=== PATIENT | male | born 1965 | race Caucasian/White ===

== ENCOUNTER → 2017-04-04 | Outpatient (CLI) | payer MEDICARE ==
[~2017-04-04] MED LIST: ALPR-429 PO; CITA-139 PO; OXYC-854 PO; PER PO; PROM-110 PO; SALI10002; ZOLP-350 PO
== END ==
LOC: LAB 16:54
PROVIDERS: ATTEND Emergency Medicine
DX: Z12.5 Encounter for screening for malignant neoplasm of prostate (principal); R25.1 Tremor, unspecified
CPT/HCPCS: 36415; 84443; G0103; 84153

== ENCOUNTER → 2017-04-13 | Outpatient (CLI) | payer MEDICARE ==
[~2017-04-13] MED LIST changes: +FLU60SYR30 IM ONLY; +IPRA3AMP21 IH; +IPRA4AER IH; +PNEI IJ; +PRIM50TA PO; +TIOT4MIS3 INH
== END ==
LOC: RESP 02:49
PROVIDERS: ATTEND Emergency Medicine
DX: J98.4 Other disorders of lung (principal)
CPT/HCPCS: 94060; 94726; 94729

== ENCOUNTER → 2017-04-19 | Outpatient (CLI) | payer MEDICARE ==
[~2017-04-19] MED LIST changes: -IPRA3AMP21 IH
--- NOTE | 2017-04-19 13:33 | RADIOLOGY IMAGING REPORT ---
FACILITY: [facility] PATIENT NAME: Cedric Estrada : 1965 MR: [id number] V: [id number] EXAM DATE: ORDERING PHYSICIAN: MOSES BARAJAS TECHNOLOGIST: Location: [facility] [place] Patient: Cedric Estrada : 1965 Visit/Account:[id number] Date of Sevice: 04/19/2017 Exam type: CHEST PA AND LAT History: Chest pain waking him up at night, 25+ years smoker, squamous cell neck and throat cancer hi story Comparison: None. Findings: The lungs are free of acute effusions, infiltrates or edema. The cardiac silhouette is normal in siz e. Trachea is in midline. There are mild spondylotic changes of the thoracic spine. IMPRESSION: 1. No acute cardiopulmonary process is seen. Report Dictated By: Nena Theodore MD at 04/19/2017 1:27 PM Report E-Signed By: Nena Theodore MD at 04/19/2017 1:28 PM WSN:[email or web address]
== END ==
LOC: LAB 11:21
PROVIDERS: ATTEND Emergency Medicine
DX: R06.09 Other forms of dyspnea (principal); Z72.0 Tobacco use; E66.3 Overweight
CPT/HCPCS: 36415; 71046; 82465; 83718; 84478

== ENCOUNTER 2017-04-28 14:28 | Emergency (ER) | payer MEDICARE ==
[~2017-04-28] VITALS: Ht 182.9 cm; Wt 81.6 kg
[~2017-04-28 14:28] MED LIST changes: +IPRA3AMP21 IH
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
[2017-04-28] MEDS ORDERED: CITA-156 PO (14:42)
[2017-04-28] MEDS ORDERED: LIDOCAINE 2% 200MG/10ML UROJET ONE (15:03)
[2017-04-28 16:00] VITALS: BP 133/88
== END 2017-04-28 16:04 | disposition home or self-care (01) ==
LOC: ER 14:40
DX: R33.9 Retention of urine, unspecified (principal)
CPT/HCPCS: 81001; 87088; 99283

== ENCOUNTER → 2017-04-29 | Outpatient (CLI) | payer MEDICARE ==
[~2017-04-29] MED LIST changes: +CITA-156 PO
== END ==
LOC: LAB 11:07
PROVIDERS: ATTEND Emergency Medicine
DX: F15.10 Other stimulant abuse, uncomplicated (principal); Z79.899 Other long term (current) drug therapy
CPT/HCPCS: 80305

== ENCOUNTER → 2017-05-20 | Outpatient (CLI) | payer MEDICARE | LOC: LAB 14:22 | PROVIDERS: ATTEND Urology | DX: R31.0 Gross hematuria (principal) | CPT/HCPCS: 36415; 82565 ==

== ENCOUNTER 2017-07-21 05:01 | Emergency (ER) | payer MEDICARE ==
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
[2017-07-21 05:35] LABS: PLATELET COUNT, AUTOMATED 202 K/uL (150-450)
--- NOTE | 2017-07-21 06:19 | RADIOLOGY IMAGING REPORT ---
FACILITY: [facility] [place] PATIENT NAME: Cedric Estrada : 1965 MR: [id number] V: [id number] EXAM DATE: ORDERING PHYSICIAN: JESSICA CRUZ TECHNOLOGIST: [facility] Patient: Cedric Estrada : 1965 Visit/Account:[id number] Date of Sevice: 07/21/2017 CT Head without contrast Indication: Seizure. Comparison: None available. Technique: Axial CT images were obtained through the brain from the skull base to the vertex without administration of IV contrast. One of the following dose optimization techniques was utilized in th e performance of this exam: Automated exposure control; adjustment of the mA and/or kV according to t he patient's size; or use of an iterative reconstruction technique. Specific details can be referen chi in the facility's radiology CT exam operational policy. Findings: No evidence of mass, mass effect, or midline shift. No acute intracranial hemorrhage or acute territorial infarction. No fracture. Apparent previous right globe enucleation. A prosthetic is posteriorly and laterally displaced. Small right frontal ethmoidal retention cyst The visualized paranasal sinuses and mastoid air spaces are otherwise clear. IMPRESSION: 1. No acute intracranial abnormality. 2. 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 Dr. Woodall discussed this case with JESSICA CRUZ on 07/21/2017 6:14 AM. Report Dictated By: Sandro Woodall MD at 07/21/2017 6:08 AM Report E-Signed By: Sandro Woodall MD at 07/21/2017 6:15 AM WSN:[id number]
[2017-07-21] MEDS ORDERED: PRIM50TA PO (06:38)
[2017-07-21] MEDS ORDERED: EMS NS 0.9%(*) 1000 ML BAG 1,000 ML IV ONE (07:15)
[2017-07-21 10:14] VITALS: BP 144/93
== END 2017-07-21 10:27 | disposition home or self-care (01) ==
LOC: ER 05:04
DX: R56.9 Unspecified convulsions (principal); F15.10 Other stimulant abuse, uncomplicated; F19.10 Other psychoactive substance abuse, uncomplicated; Z85.89 Personal history of malignant neoplasm of other organs and systems
CPT/HCPCS: 36415; 36416; 70450; 80305; 82948; 83735; 85025; 96361; 99284; G0480; 80320; 82040; 82247; 82310; 82374; 82435; 82565; 82947; 84075; 84132; 84155; 84295; 84450; 84460; 84520; 96360

== ENCOUNTER → 2017-07-21 | Outpatient (CLI) | payer MEDICARE ==
[~2017-07-21] MED LIST changes: -CITA-139 PO; +CITA-145 PO
== END ==
LOC: AMB 04:36
PROVIDERS: ATTEND Nurse Practitioner
DX: R56.9 Unspecified convulsions (principal); S30.861A Insect bite (nonvenomous) of abdominal wall, initial encounter
CPT/HCPCS: A0425; A0427

== ENCOUNTER 2017-08-29 22:56 | Emergency (ER) | payer MEDICARE ==
--- NOTE | 2017-08-29 23:08 | ER Report ---
History and Physical Time Seen By MD: 23:01 HPI/ROS CHIEF COMPLAINT: Bladder pain, hematuria HISTORY OF PRESENT ILLNESS: 52-year-old male reports 1 week of hematuria. Patient is followed by Dr. Billingsley urology in [place]. 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 Patient was seen here several months ago with a seizure abusing methamphetamines. He was discharged from his internal medicine practice where he was being managed for chronic pain. When he admitted methamphetamine use and abuse. Patient reports gross hematuria. He notes staining of his shorts with hematuria. Patient's reporting bladder discomfort. He denies fever or chills. REVIEW OF SYSTEMS: Respiratory: No cough, no dyspnea. Cardiovascular: No chest pain, no palpitations. Gastrointestinal: As above Musculoskeletal: No back pain. Home Meds Active Scripts Primidone (PRIMIDONE) 50 Mg Tab, 50 MG PO DAILY for seizure prevention, #30 TAB Prov:JESSICA CRUZ DO 07/21/17 Citalopram Hydrobromide (CELEXA) 20 Mg Tablet, 20 MG PO QDAY, #30 TAB 0 Refills Prov:MOSES BARAJAS MD 05/05/17 Primidone (PRIMIDONE) 50 Mg Tab, 1 TAB PO DAILY, #30 TAB Prov:MOSES BARAJAS MD 05/05/17 Ipratropium/Albuterol Sulfate (COMBIVENT RESPIMAT INHAL SPRAY) 4 Gm Aer.w.adap, 1 EACH IH QID, #1 Prov:MOSES BARAJAS MD 04/20/17 Promethazine Hcl (PROMETHAZINE HCL) 25 Mg Tablet, 25 MG PO Q8H for 30 Days, #60 TAB Prov:MARTY DE LEON [employer] [facility] [employer]-BC, ONC 03/15/17 Reported Medications Saliva Substitution Combo No.9 (Biotene) Unknown Strength Mouthwash 04/04/17 Discontinued Scripts Alprazolam (XANAX) 0.5 Mg Tablet, 1 TAB PO TID for 30 Days, #42 TAB Prov:MOSES BARAJAS MD 05/05/17 Ipratropium/Albuterol Sulfate (IPRAT-ALBUT 0.5-3(2.5) MG/3 ML) 3 Ml Ampul.neb, 3 ML IH QID, #120 VIAL 0 Refills Prov:MOSES BARAJAS MD 04/21/17 Reviewed Nurses Notes: Yes Old Medical Records Reviewed: Yes Smoking Status: Current: Every Day Smoker Hx Substance Use Disorder: No Hx Alcohol Use: No Constitutional Vital Sign - Last 24 Hours 08/29/17 08/29/17 08/29/17 08/29/17 23:05 23:05 23:15 23:30 Temp 98.3 Pulse 110 104 101 Resp 28 B/P (MAP) 144/103 (117) 144/103 117/83 (94) Pulse Ox 98 97 97 08/29/17 08/30/17 08/30/17 08/30/17 23:45 00:00 00:15 00:30 Pulse 97 98 B/P (MAP) 128/92 (104) 122/92 (102) Pulse Ox 95 95 08/30/17 00:45 Pulse 97 Pulse Ox 86 Physical Exam General Appearance: The patient is alert, has no immediate need for airway protection and no current signs of toxicity. - Stable, afebrile, pulse ox normal Eyes: Pupils equal and round no injection. Respiratory: Chest is non tender, lungs are clear to auscultation. Cardiac: regular rate and rhythm Gastrointestinal: Abdomen is soft and non tender, no masses, bowel sounds normal. Blood stained underwear Musculoskeletal: Neck: Neck is supple and non tender. Extremities have full range of motion and are non tender. Skin: No rashes or lesions. DIFFERENTIAL DIAGNOSIS: After history and physical exam differential diagnosis was considered for hematuria, UTI, renal colic, bladder cancer, interstitial cystitis, malingering Medical Decision Making Data Points Result Diagram: 08/29/17 22508/29/172250 Laboratory Hematology Test 08/29/17 22:51 08/30/17 00:31 Red Blood Count 5.57 M/uL (4.00-5.60) Mean Corpuscular Volume 90.4 fL (80.0-96.0) Mean Corpuscular Hemoglobin 31.1 pg (26.0-33.0) Mean Corpuscular Hemoglobin Concent 34.3 g/dL (32.0-36.0) Red Cell Distribution Width 14.6 % (11.5-14.5) Mean Platelet Volume 8.2 fL (7.2-11.1) Neutrophils (%) (Auto) 77.3 % (39.4-72.5) Lymphocytes (%) (Auto) 15.2 % (17.6-49.6) Monocytes (%) (Auto) 5.5 % (4.1-12.4) Eosinophils (%) (Auto) 1.1 % (0.4-6.7) Basophils (%) (Auto) 0.9 % (0.3-1.4) Nucleated RBC Relative Count (auto) 0.0 /100WBC Neutrophils # (Auto) 10.6 K/uL (2.0-7.4) Lymphocytes # (Auto) 2.1 K/uL (1.3-3.6) Monocytes # (Auto) 0.8 K/uL (0.3-1.0) Eosinophils # (Auto) 0.1 K/uL (0.0-0.5) Basophils # (Auto) 0.1 K/uL (0.0-0.1) Nucleated RBC Absolute Count (auto) 0.00 K/uL Prothrombin Time 12.9 seconds (12.0-14.4) Prothromb Time International Ratio 0.97 Activated Partial Thromboplast Time 27 seconds (23-35) Sodium Level 140 mmol/L (137-145) Potassium Level 3.8 mmol/L (3.5-5.0) Chloride Level 101 mmol/L (98-107) Carbon Dioxide Level 24 mmol/L (22-30) Blood Urea Nitrogen 24 mg/dl (9-21) Creatinine 1.20 mg/dl (0.66-1.25) Glomerular Filtration Rate Calc > 60.0 Random Glucose 95 mg/dl (75-110) Calcium Level 9.5 mg/dl (8.4-10.2) Total Bilirubin 0.6 mg/dl (0.2-1.3) Aspartate Amino Transf (AST/SGOT) 49 U/L (0-35) Alanine Aminotransferase (ALT/SGPT) 73 U/L (0-56) Alkaline Phosphatase 87 U/L (0-126) Total Protein 8.4 g/dl (6.3-8.2) Albumin 4.7 g/dl (3.5-5.0) Amylase Level 83 U/L (0-110) Lipase 44 U/L (23-300) Urine Color Yellow Urine Clarity Clear Urine pH 6.0 pH (4.8-9.5) Urine Specific [place] 1.023 Urine Protein Negative mg/dL (NEGATIVE) Urine Glucose (UA) Negative mg/dL (NEGATIVE) Urine Ketones Trace mg/dL (NEGATIVE) Urine Blood Negative (NEGATIVE) Urine Nitrite Negative (NEGATIVE) Urine Bilirubin Negative (NEGATIVE) Urine Urobilinogen Negative mg/dL (0.2-1.9) Urine Leukocyte Esterase Negative (NEGATIVE) Urine RBC 3 /HPF (0-2/HPF) Urine WBC 1 /HPF (0-5/HPF) Urine Squamous Epithelial Cells None /LPF (</=FEW) Urine Bacteria Negative /HPF (NONE-FEW) Urine Mucus None /HPF (NONE-FEW) Urine Opiates Screen Positive Urine Barbiturates Screen Negative Ur Tricyclic Antidepressants Screen Negative Urine Phencyclidine Screen Negative Urine Amphetamines Screen Positive Urine Benzodiazepines Screen Negative Urine Cocaine Screen Negative Urine Cannabinoids Screen Negative Chemistry Test 08/29/17 22:51 08/30/17 00:31 White Blood Count 13.7 k/uL (4.5-11.0) Red Blood Count 5.57 M/uL (4.00-5.60) Hemoglobin 17.3 g/dL (14.0-18.0) Hematocrit 50.4 % (42.0-52.0) Mean Corpuscular Volume 90.4 fL (80.0-96.0) Mean Corpuscular Hemoglobin 31.1 pg (26.0-33.0) Mean Corpuscular Hemoglobin Concent 34.3 g/dL (32.0-36.0) Red Cell Distribution Width 14.6 % (11.5-14.5) Platelet Count 286 K/uL (150-450) Mean Platelet Volume 8.2 fL (7.2-11.1) Neutrophils (%) (Auto) 77.3 % (39.4-72.5) Lymphocytes (%) (Auto) 15.2 % (17.6-49.6) Monocytes (%) (Auto) 5.5 % (4.1-12.4) Eosinophils (%) (Auto) 1.1 % (0.4-6.7) Basophils (%) (Auto) 0.9 % (0.3-1.4) Nucleated RBC Relative Count (auto) 0.0 /100WBC Neutrophils # (Auto) 10.6 K/uL (2.0-7.4) Lymphocytes # (Auto) 2.1 K/uL (1.3-3.6) Monocytes # (Auto) 0.8 K/uL (0.3-1.0) Eosinophils # (Auto) 0.1 K/uL (0.0-0.5) Basophils # (Auto) 0.1 K/uL (0.0-0.1) Nucleated RBC Absolute Count (auto) 0.00 K/uL Prothrombin Time 12.9 seconds (12.0-14.4) Prothromb Time International Ratio 0.97 Activated Partial Thromboplast Time 27 seconds (23-35) Glomerular Filtration Rate Calc > 60.0 Calcium Level 9.5 mg/dl (8.4-10.2) Total Bilirubin 0.6 mg/dl (0.2-1.3) Aspartate Amino Transf (AST/SGOT) 49 U/L (0-35) Alanine Aminotransferase (ALT/SGPT) 73 U/L (0-56) Alkaline Phosphatase 87 U/L (0-126) Total Protein 8.4 g/dl (6.3-8.2) Albumin 4.7 g/dl (3.5-5.0) Amylase Level 83 U/L (0-110) Lipase 44 U/L (23-300) Urine Color Yellow Urine Clarity Clear Urine pH 6.0 pH (4.8-9.5) Urine Specific [place] 1.023 Urine Protein Negative mg/dL (NEGATIVE) Urine Glucose (UA) Negative mg/dL (NEGATIVE) Urine Ketones Trace mg/dL (NEGATIVE) Urine Blood Negative (NEGATIVE) Urine Nitrite Negative (NEGATIVE) Urine Bilirubin Negative (NEGATIVE) Urine Urobilinogen Negative mg/dL (0.2-1.9) Urine Leukocyte Esterase Negative (NEGATIVE) Urine RBC 3 /HPF (0-2/HPF) Urine WBC 1 /HPF (0-5/HPF) Urine Squamous Epithelial Cells None /LPF (</=FEW) Urine Bacteria Negative /HPF (NONE-FEW) Urine Mucus None /HPF (NONE-FEW) Urine Opiates Screen Positive Urine Barbiturates Screen Negative Ur Tricyclic Antidepressants Screen Negative Urine Phencyclidine Screen Negative Urine Amphetamines Screen Positive Urine Benzodiazepines Screen Negative Urine Cocaine Screen Negative Urine Cannabinoids Screen Negative Coagulation Test 08/29/17 22:51 Prothrombin Time 12.9 seconds Prothromb Time International Ratio 0.97 Activated Partial Thromboplast Time 27 seconds Toxicology Test 08/30/17 00:31 Urine Opiates Screen Positive Urine Barbiturates Screen Negative Ur Tricyclic Antidepressants Screen Negative Urine Phencyclidine Screen Negative Urine Amphetamines Screen Positive Urine Benzodiazepines Screen Negative Urine Cocaine Screen Negative Urine Cannabinoids Screen Negative Urinalysis Test 08/30/17 00:31 Urine Color Yellow Urine Clarity Clear Urine pH 6.0 pH (4.8-9.5) Urine Specific [place] 1.023 Urine Protein Negative mg/dL (NEGATIVE) Urine Glucose (UA) Negative mg/dL (NEGATIVE) Urine Ketones Trace mg/dL (NEGATIVE) Urine Blood Negative (NEGATIVE) Urine Nitrite Negative (NEGATIVE) Urine Bilirubin Negative (NEGATIVE) Urine Urobilinogen Negative mg/dL (0.2-1.9) Urine Leukocyte Esterase Negative (NEGATIVE) Urine RBC 3 /HPF (0-2/HPF) Urine WBC 1 /HPF (0-5/HPF) Urine Squamous Epithelial Cells None /LPF (</=FEW) Urine Bacteria Negative /HPF (NONE-FEW) Urine Mucus None /HPF (NONE-FEW) ED Course/Re-evaluation ED Course Patient was admitted to an examination room. H&P was done. The differential diagnoses was considered. On clinical examination. Patient's complaining of hematuria and bladder pain. Patient has a history of polysubstance abuse. Diagnostic laboratory studies are ordered. A urinalysis is ordered. Patient's unable to provide urine claims he is unable to void. A [place] catheter was inserted. His urine is clear yellow. There is no evidence of infection. There is no hematuria. Patient requesting that the [place] catheter be left in. He is advised to follow-up with Dr. Gonzalez his urologist in [place]. A drug tox screen is positive for opiates and methamphetamine. I suspect the patient' s malingering as he does not want to assisted. [employer] officers are here and are planning arresting him. Decision to Disposition Date: Aug 30, 2017 Decision to Disposition Time: 00:50 Depart Departure Latest Vital Signs Vital Signs Date Time Temp Pulse Resp B/P (MAP) Pulse Ox O2 Delivery O2 Flow Rate FiO2 08/30/17 00:45 97 86 08/30/17 00:30 122/92 (102) 08/29/17 23:05 98.3 28 Impression: Primary Impression: Hematuria Additional Impressions: Bladder pain Malingering Condition: Improved Disposition: [facility]CORRECTIONAL F Referrals: MOSES BARAJAS MD (PCP) Patient Instructions: Hematuria (ED) Additional Instructions: Follow-up with your urologist Medical cleared for assisted admission Problem Qualifiers Primary Impression: Hematuria Hematuria type: unspecified type Qualified Codes: R31.9 - Hematuria, unspecified JESSICA CRUZ DO Aug 29, 2017 23:08
[2017-08-29 23:15] LABS: PLATELET COUNT, AUTOMATED 286 K/uL (150-450)
[2017-08-29 23:25] LABS: INR 0.97
[2017-08-30] MEDS ORDERED: LIDOCAINE 2% 200MG/10ML UROJET TP ONE (00:15)
[2017-08-30 00:30] VITALS: BP 122/92
== END 2017-08-30 01:18 ==
LOC: ER 23:02
DX: R31.9 Hematuria, unspecified (principal); R39.89 Other symptoms and signs involving the genitourinary system; Z76.5 Malingerer [conscious simulation]; F15.90 Other stimulant use, unspecified, uncomplicated
CPT/HCPCS: 80305; 81001; 82040; 82150; 82247; 82310; 82374; 82435; 82565; 82947; 83690; 84075; 84132; 84155; 84295; 84450; 84460; 84520; 85025; 85610; 85730; 99283

== ENCOUNTER → 2017-08-29 | Outpatient (CLI) | payer MEDICARE | LOC: AMB 22:40 | PROVIDERS: ATTEND Nurse Practitioner | DX: R39.89 Other symptoms and signs involving the genitourinary system (principal); N48.89 Other specified disorders of penis | CPT/HCPCS: A0425; A0427 ==